=== PATIENT | female | born 1980 | race Caucasian/White ===

== ENCOUNTER 2017-10-14 11:40 | Day surgery (SDC) | payer MEDICAID ==
[2017-10-09 14:38] LABS: BASOPHILS % (AUTO) 0.6 % (0-1); EOSINOPHILS # (AUTO) 0.2 X10'3 (0-0.9); EOSINOPHILS % (AUTO) 3.3 % (0-6); LYMPHOCYTES # (AUTO) 2.4 X10'3 (1.1-4.8); MEAN CORPUSCULAR HEMOGLOBIN 29.8 PG (27.0-31.0); MEAN CORPUSCULAR HGB CONC 33.9 % (33.0-36.5); MEAN CORPUSCULAR VOLUME 87.8 FL (78-98); MEAN PLATELET VOLUME 8.8 FL (7.4-10.4); MONOCYTES # (AUTO) 0.5 X10'3 (0-0.9); NEUTROPHILS # (AUTO) 4.3 X10'3 (1.8-7.7); NEUTROPHILS % (AUTO) 57.1 % (42-75); PRE OP HEMATOCRIT 39.1 % (35.0-45.0); PRE OP HEMOGLOBIN 13.3 g/dL (12.0-16.0); PRE OP PLATELET COUNT 274 X10'3 (140-440); RED BLOOD COUNT 4.46 X10'6 (4.20-5.60); RED CELL DISTRIBUTION WIDTH 13.1 % (11.5-14.5)
[2017-10-09 14:51] LABS: HEMOGLOBIN A1C 5.6 % (4.5-6.2)
[2017-10-09 14:53] LABS: ALBUMIN 3.9 G/DL (3.4-5.0); ALKALINE PHOSPHATASE 83 IU/L (46-116); BLOOD UREA NITROGEN 10 MG/DL (7-18); BUN/CREATININE RATIO 11.5 (6.6-38.0); CHLORIDE 105 MMOL/L (99-107); CREATININE 0.87 MG/DL (0.40-0.90); PRE OP ALT 57 U/L (30-65); PRE OP ANION GAP 8 (8-16); PRE OP AST 39 U/L (10-37); PRE OP BILIRUB, TOTAL 0.2 MG/DL (0.0-1.0); PRE OP GLUCOSE 102 MG/DL (70-104); PRE OP POTASSIUM 3.5 MMOL/L (3.4-5.1); PRE OP SODIUM 143 MMOL/L (135-145); TOTAL CARBON DIOXIDE 29.9 MMOL/L (24-32); TOTAL PROTEIN 7.8 G/DL (6.4-8.2); eGFR 74 ML/MIN
[2017-10-09 14:55] LABS: HCG SERUM QL NEGATIVE
[2017-10-14] VITALS (10 sets, daily range): BP systolic 102–141; BP diastolic 63–87
[~2017-10-14] VITALS: Ht 160 cm; Wt 75.4 kg
[~2017-10-14 11:40] MED LIST: ACET1TAB12 PO; CYCL-1 PO; DOCUMENT DATE & TIME OF BETA-BLOCKER PO ONE; FAMO40TA7 PO; PROP60CA6 PO; TRAM50TA2 PO; ceFOXitin 1 GM ADDVANTAGE BAG 1,000 MG in normal saline 100ml IV soln 100 ML IV ONE; famotidine 20mg tablet PO ONE
[2017-10-14] MEDS ORDERED: clindamycin phosphate 40gm vag cream ONE (12:42)
[2017-10-14] MEDS ORDERED: morphine 10mg/ml inj. ONE (12:42)
[2017-10-14] MEDS ORDERED: BUPIVAcaine/PF 2.5 mg/ml (0.25%) 30ml vial ONE (12:43)
[2017-10-14] MEDS ORDERED: vasoPRESSIN 20 units/ml inj. ONE (12:43)
[2017-10-14] MEDS ORDERED: LIDOcaine 1% 30ml preserv. free vial ONE (12:43)
[2017-10-14] MEDS ORDERED: ceFAZolin 1000mg inj ONE (12:43)
[2017-10-14] MEDS ORDERED: dexamethasone sod phosphate 4mg/ml inj. ONE (13:42)
[2017-10-14] MEDS ORDERED: sevoflurane 250ml liquid IH ONE (13:42)
[2017-10-14] MEDS ORDERED: furosemide 20 MG/2 ML vial ONE (13:42)
[2017-10-14] MEDS ORDERED: ketorolac trometh. 30mg/ml inj. ONE (13:42)
[2017-10-14] MEDS ORDERED: propofol inj 20 ML IV ONE (13:49)
[2017-10-14] MEDS ORDERED: LIDOcaine 2% (20mg/ml) 5ml vial ONE (13:49)
[2017-10-14] MEDS ORDERED: midazolam 2 mg/2 ml injection ONE (13:49)
[2017-10-14] MEDS ORDERED: rocuronium 10mg/ml inj IV ONE (13:53)
[2017-10-14] MEDS ORDERED: fentaNYL /PF 50mcg/ml 5ml ampule ONE (13:53)
[2017-10-14] MEDS ORDERED: ringers solution, lacted 1,000 ML IV SCH (14:12)
[2017-10-14] MEDS ORDERED: proCHLORperazine 10 MG/2 ml inj IV PRN ×2 (14:15→21:00)
[2017-10-14] MEDS ORDERED: morphine 2 MG/ML inj. syringe IV PRN ×2 (14:15)
[2017-10-14] MEDS ORDERED: ondansetron/PF 4mg/2ml inj IV PRN ×2 (14:15→15:55)
[2017-10-14] MEDS ORDERED: meperidine/PF 50mg/ml syringe IV PRN ×3 (14:15)
[2017-10-14] MEDS ORDERED: ondansetron/PF 4mg/2ml inj ONE (14:18)
[2017-10-14] MEDS ORDERED: temazepam 15mg capsule PO PRN (15:55)
[2017-10-14] MEDS ORDERED: normal saline 500ml IV soln 500 ML IV PRN (15:55)
[2017-10-14] MEDS ORDERED: magnesium hydroxide 30ml (MOM) UD suspension PO PRN (15:55)
[2017-10-14] MEDS ORDERED: HYDROcodone/acetaminophen 5mg/325mg tablet PO PRN (15:55)
[2017-10-14] MEDS ORDERED: ketorolac trometh. 30mg/ml inj. IV PRN (15:55)
[2017-10-14] MEDS ORDERED: diphenhydrAMINE 50 mg/ml inj IV PRN (15:55)
[2017-10-14] MEDS ORDERED: naloxone 0.4 mg/ml inj IV PRN (15:55)
[2017-10-14] MEDS ORDERED: CADD PCA waste documentation MC PRN (15:55)
[2017-10-14] MEDS: morphine/NS 5 mg/ml CADD 50 ML IV SCH ×4 (16:25→23:00)
[2017-10-14] MEDS ORDERED: traMADol 50MG tablet PO PRN (17:35)
[2017-10-14] MEDS: simethicone 80mg chew tab PO SCH (18:00)
[2017-10-14] MEDS: docusate sod 100mg capsule PO SCH (20:00)
[2017-10-14] MEDS ORDERED: famotidine 20mg tablet PO SCH (21:00)
[2017-10-14] MEDS ORDERED: scopolamine 1.5mg patch.TD72 TD SCH (21:00)
[2017-10-14] MEDS ORDERED: cyclobenzaprine 10mg tablet PO SCH (21:00)
[2017-10-14] MEDS: ringers solution, lacted 1,000 ML IV SCH ×2 (22:46→23:18)
[2017-10-15] VITALS: BP 113/58
[2017-10-15] MEDS: morphine/NS 5 mg/ml CADD 50 ML IV SCH ×4 (01:00→07:00)
[2017-10-15 04:00] VITALS: BP 100/64
[2017-10-15 05:11] LABS: BASOPHILS % (AUTO) 0 % (0-1); EOSINOPHILS # (AUTO) 0.2 X10'3 (0-0.9); EOSINOPHILS % (AUTO) 1.3 % (0-6); HEMATOCRIT 35.6 % (35.0-45.0); HEMOGLOBIN 12.3 g/dl (12.0-16.0); LYMPHOCYTES # (AUTO) 0.9 X10'3 (1.1-4.8); LYMPHOCYTES % (AUTO) 5.9 % (21-51); MEAN CORPUSCULAR HEMOGLOBIN 30.1 PG (27.0-31.0); MEAN CORPUSCULAR HGB CONC 34.6 % (33.0-36.5); MEAN CORPUSCULAR VOLUME 87.1 FL (78-98); MONOCYTES # (AUTO) 0.3 X10'3 (0-0.9); MONOCYTES % (AUTO) 2.2 % (2-12); NEUTROPHILS # (AUTO) 13.1 X10'3 (1.8-7.7); NEUTROPHILS % (AUTO) 90.6 % (42-75); PLATELET COUNT 249 X10'3 (140-440); RED BLOOD COUNT 4.09 X10'6 (4.20-5.60); RED CELL DISTRIBUTION WIDTH 13.1 % (11.5-14.5); WHITE BLOOD COUNT 14.5 X10'3 (4.5-11.0)
[2017-10-15 07:44] VITALS: BP 102/63
[2017-10-15] MEDS ORDERED: propranolol LA 60 MG cap.SA.24H PO SCH ×2 (08:00)
[2017-10-15] MEDS: ringers solution, lacted 1,000 ML IV SCH (08:52)
[2017-10-15] MEDS: docusate sod 100mg capsule PO SCH (08:53)
[2017-10-15] MEDS: simethicone 80mg chew tab PO SCH ×2 (08:53→12:51)
[2017-10-15 11:00] VITALS: BP 117/68
[2017-10-15] MEDS: HYDROcodone/acetaminophen 5mg/325mg tablet PO PRN ×2 (11:40→15:57)
== END 2017-10-15 17:05 | disposition home or self-care (01) ==
LOC: PAS 11:40 → SUR 3N 15:53 → PAS 10-15 17:05
PROVIDERS: ATTEND Specialist
DX: N80.0 Endometriosis of uterus (principal); N73.6 Female pelvic peritoneal adhesions (postinfective); N88.8 Other specified noninflammatory disorders of cervix uteri; N89.4 Leukoplakia of vagina; F41.9 Anxiety disorder, unspecified; J45.909 Unspecified asthma, uncomplicated; F32.9 Major depressive disorder, single episode, unspecified; G43.909 Migraine, unspecified, not intractable, without status migrainosus; F12.90 Cannabis use, unspecified, uncomplicated; I49.9 Cardiac arrhythmia, unspecified; G89.29 Other chronic pain; K21.9 Gastro-esophageal reflux disease without esophagitis; Z79.82 Long term (current) use of aspirin; Z88.1 Allergy status to other antibiotic agents; Z88.2 Allergy status to sulfonamides; Z88.8 Allergy status to other drugs, medicaments and biological substances; Z72.89 Other problems related to lifestyle; Z98.890 Other specified postprocedural states; Z79.899 Other long term (current) drug therapy
CPT/HCPCS: 36415; 51992; 57265; 57268; 58552; 80053; 83036; 84703; 85025; 85610; 85730; 87070; A4315; A4353; A4355; C1771; J0690; J0694; J0780; J1100; J1200; J1885; J1940; J2001; J2250; J2270; J2405; J2704; J3010; J3490; J7030; J7120; A6250; A7000

== ENCOUNTER 2020-05-01 15:31 | Emergency (ER) | payer MEDICAID ==
[~2020-05-01] VITALS: Ht 160 cm; Wt 79.5 kg
[~2020-05-01 15:31] MED LIST changes: -DOCUMENT DATE & TIME OF BETA-BLOCKER PO ONE; +PROP60CA37 PO; -PROP60CA6 PO; -ceFOXitin 1 GM ADDVANTAGE BAG 1,000 MG in normal saline 100ml IV soln 100 ML IV ONE; -famotidine 20mg tablet PO ONE
[2020-05-01 16:43] LABS: BASOPHILS % (AUTO) 0.5 % (0-1); EOSINOPHILS # (AUTO) 0.2 X10'3 (0-0.9); EOSINOPHILS % (AUTO) 2.3 % (0-6); HEMATOCRIT 40.1 % (35.0-45.0); HEMOGLOBIN 13.3 g/dl (12.0-16.0); LYMPHOCYTES # (AUTO) 2.4 X10'3 (1.1-4.8); LYMPHOCYTES % (AUTO) 24.5 % (21-51); MEAN CORPUSCULAR HEMOGLOBIN 29.6 PG (27.0-31.0); MEAN CORPUSCULAR HGB CONC 33.3 g/dL (33.0-36.5); MEAN PLATELET VOLUME 8.8 FL (7.4-10.4); MONOCYTES # (AUTO) 0.7 X10'3 (0-0.9); MONOCYTES % (AUTO) 6.8 % (2-12); NEUTROPHILS # (AUTO) 6.5 X10'3 (1.8-7.7); NEUTROPHILS % (AUTO) 65.9 % (42-75); PLATELET COUNT 326 X10'3 (140-440); RED BLOOD COUNT 4.51 X10'6 (4.20-5.60); WHITE BLOOD COUNT 9.9 X10'3 (4.5-11.0)
[2020-05-01 16:55] LABS: ALANINE AMINOTRANSFERASE 68 U/L (12-78); ALBUMIN 4.3 G/DL (3.4-5.0); ALBUMIN/GLOBULIN RATIO 1.1 (1.1-1.5); ALKALINE PHOSPHATASE 95 IU/L (46-116); ANION GAP 6 (8-16); ASPARTATE AMINO TRANSFERASE 34 U/L (10-37); BILIRUBIN,TOTAL 0.6 MG/DL (0.1-1.0); BLOOD UREA NITROGEN 12 MG/DL (7-18); CALCIUM 9.1 MG/DL (8.5-10.1); CHLORIDE 100 MMOL/L (99-107); CREATININE 0.92 MG/DL (0.40-0.90); GLUCOSE 107 MG/DL (70-104); LIPASE 79 U/L (73-393); POTASSIUM 3.7 MMOL/L (3.5-5.1); SODIUM 136 MMOL/L (135-145); TOTAL CARBON DIOXIDE 29.6 MMOL/L (24-32); TOTAL PROTEIN 8.2 G/DL (6.4-8.2); eGFR 68 ML/MIN
[2020-05-01 17:18] LABS: CLARITY,URINE CLEAR (Clear); COLOR,URINE YELLOW (Yellow); GLUCOSE, URINE NEGATIVE (Neg); KETONES,URINE NEGATIVE (Neg); LEUKOCYTE ESTERASE ,URINE NEGATIVE (Neg); NITRITES, URINE NEGATIVE (Neg); OCCULT BLOOD,URINE NEGATIVE (Neg); PROTEIN,URINE NEGATIVE (Neg); URINE HCG NEGATIVE (NEG); UROBILINOGEN,URINE 0.2 E.U/dL (0.2-1.0)
[2020-05-01 17:21] LABS: UA COLLECTION TYPE CLN CATCH MIDSTREAM
[2020-05-01] MEDS ORDERED: ondansetron/PF 4mg/2ml inj IV ONE (18:20)
[2020-05-01] MEDS ORDERED: morphine 4 MG/ML inj SYRINge IV ONE (18:20)
--- NOTE | 2020-05-01 18:34 | NUR ---
KEKE Sol at bedside to discuss d/c plan and CT results.
[2020-05-01 19:21] VITALS: BP 116/53
== END 2020-05-01 19:22 | disposition home or self-care (01) ==
LOC: ER 15:31
DX: R10.11 Right upper quadrant pain (principal); K59.00 Constipation, unspecified; K21.9 Gastro-esophageal reflux disease without esophagitis; G89.29 Other chronic pain; F31.9 Bipolar disorder, unspecified; Z90.710 Acquired absence of both cervix and uterus; Z98.890 Other specified postprocedural states; Z88.1 Allergy status to other antibiotic agents; Z79.899 Other long term (current) drug therapy
CPT/HCPCS: 36415; 74176; 80053; 81003; 81025; 83690; 85025; 96374; 96375; 99284; J2270; J2405